=== PATIENT | male | born 1950 | race Caucasian/White ===

== ENCOUNTER 2018-03-28 22:41 | Inpatient (IN) ==
[2018-03-29] MEDS: *HR* Promethazine 25 MG/ML VIAL IVP PRN ×3 (01:05→15:08)
[2018-03-29] MEDS: *HR* FentaNYL (PF) 100 MCG/2 ML VIAL IVP PRN ×3 (01:06→07:50)
[2018-03-29] MEDS: 0.9 % Sodium Chloride 1,000 ML IVC SCH ×2 (01:06→15:27)
[2018-03-29 01:45] LABS: Basophils % 0.1 %; Hematocrit 45.2 % (37.5-50.1); Hemoglobin 14.9 g/dL (12.9-16.9); Immature Granulocytes % 0.4 % (0-4); Lymphocytes # 1.2 K/mcL (0.6-4.6); Lymphocytes % 9.1 %; Mean Corpuscular Hemoglobin 30.7 pg (28.0-33.3); Mean Platelet Volume 10.5 fL (9.4-12.4); Monocytes # 0.8 K/mcL (0.0-1.3); Monocytes % 5.6 %; Neutrophils # 11.5 K/mcL (1.6-8.9); Platelet Count 211 K/mcL (140-400); Red Blood Count 4.86 M/mcL (4.19-5.50); Red Cell Distribution Width 12.8 % (11.5-14.5); Segmented Neutrophils % 84.8 %
[2018-03-29 02:01] LABS: Prothrombin Time 10.8 Seconds (9.4-12.1)
[2018-03-29 02:03] LABS: Activated Partial Thrombo Time 25.6 Seconds (26.0-36.0); Albumin 4.2 g/dL (3.5-5.7); Albumin/Globulin Ratio 1.7 (1.1-2.2); Bilirubin,Direct 0.1 mg/dL (0.0-0.2); Bilirubin,Indirect 0.4 mg/dL (0.0-1.2); Bilirubin,Total 0.5 mg/dL (0.3-1.0); Globulin 2.5 g/dL (2.4-3.5); Total Protein 6.7 g/dL (6.4-8.9)
[2018-03-29 02:05] LABS: Amylase 156 Units/L (29-103); Lipase 529 Units/L (11-82)
[2018-03-29] MEDS: Ondansetron 4 MG/2 ML VIAL IVP PRN ×2 (02:45→11:54)
[2018-03-29] MEDS ORDERED: *HR* FentaNYL (PF) 100 MCG/2 ML VIAL IVP ONE (04:23)
[2018-03-29] MEDS ORDERED: Naloxone 0.4 MG/ML INJ IVP PRN (04:38)
[2018-03-29] MEDS: Pantoprazole 40 MG VIAL IVP SCH ×2 (04:44→17:42)
--- NOTE | 2018-03-29 06:03 | Internal Med History&Physical ---
Date of Encounter: 03/29/18 Time of Encounter: 05:00 Internal Medicine - H&P: HPI Chief complaint: abdominal pain; vomiting Admitted From: Hospital to Hospital Transfer Plans for Post Hospital Care: Home History of present illness: Mr. Nagel is a 68 year old male who presents in transfer from [facility]. He presented there with complaints of acute onset abdominal pain, protracted nausea, vomiting, and doubling over in pain. Symptoms started yesterday and they were present all day. Symptoms started shortly after breakfast and did not stop. From [facility], he was referred here for ongoing care and workup. Upon my assessment of the patient when he arrived, patient was having significant epigastric pain, protracted nausea, and some vomiting with occasional bilious emesis. He confirms above history. He denies any fevers, chills, or night sweats. He has had one episode of diarrhea. He has never had this kind of symptom before. He denies any alcohol intake. He has never had gallbladder problems. He takes no medications chronically. Past Med Surg Social Fam HX - Past Medical History Attestation: Yes The following information was validated with the patient. Source: patient, other ([facility] records) Medical history: no medical history Psychiatric history: no psych history - Past Surgical History Surgical History: herniorrhaphy, vasectomy - Social History Smoking Status: Never smoker Smokeless Tobacco Status: No Alcohol use: none Drug use: none Current living situation: Home Activity Level: Independent ambulation Recent Out of Country Travel Within the Last 8 Weeks: No - Family History Mother Living Status: Hx Family GI Disorders: No Father Living Status: Hx Family GI Disorders: No Internal Medicine - H&P: Meds 3 Allergy/AdvReac Type Severity Reaction Status Date / Time No Known Allergies Allergy Verified 03/29/18 02:43 - Constitutional Constitutional: no chills, no fever(s) - EENT Eyes: no blurry vision, no change in vision Ears: no ear pain, no tinnitus Nose, mouth and throat: no nasal congestion, no sore throat - Cardiovascular Cardiovascular ROS IM: no chest pain, no dyspnea, no dyspnea on exertion, no orthopnea - Respiratory Respiratory: no cough, no hemoptysis, no chest congestion, no excessive phlegm production - Gastrointestinal Gastrointestinal: abdominal pain, diarrhea, nausea, vomiting, no hematemesis, no hematochezia, no melena - Genitourinary Genitourinary ROS male: no dysuria, no flank pain, no hematuria - Musculoskeletal Musculoskeletal ROS IM: no arthralgias, no back pain - Integumentary Integumentary IM: no rash, no jaundice - Neurological Neurological ROS: no dizziness, no focal weakness, no frequent falls, no headache(s) - Psychiatric Psychiatric: no anxiety, no depression - Endocrine Endocrine IM: no polydipsia, no polyuria - Allergic/Immunologic Allergic/Immunologic: GI upset with certain foods - Constitutional Vitals: Temp Pulse Resp BP Pulse Ox 98.1 F 64 20 173/80 95 03/29/18 03:51 03/29/18 03:51 03/29/18 03:51 03/29/18 03:51 03/29/18 03:51 General appearance: Present: cooperative, A&O X 3, severe distress, answers questions appropriately Exam: nauseated, vomiting, moderate epigastric pain - Head Head exam: Present: atraumatic, normal inspection - Eye Eye exam: Present: EOMI, PERRL. Absent: scleral icterus Pupils: Present: normal accommodation - ENT ENT exam: Present: mucous membranes dry, normal exam, normal oropharynx - Neck Neck exam general surgery: Present: full ROM, supple. Absent: tenderness, nuchal rigidity, thyromegaly - Respiratory Respiratory exam: Present: CTAB. Absent: chest wall tenderness, rales, rhonchi , wheezes - Cardiovascular Cardiovascular exam: Present: RRR, +S1, +S2. Absent: diastolic murmur, systolic murmur - GI/Abdominal GI/Abdominal exam: Present: guarding, hypoactive bowel sounds, tenderness ( epigastric area). Absent: hepatomegaly, mass, splenomegaly - Extremities Exam Extremities exam: Present: full ROM, warm, radial pulses palpable and symmetrical. Absent: calf tenderness, joint swelling, pedal edema, tenderness - Back Exam Back exam: Absent: CVA tenderness (L), CVA tenderness (R) - Neurological Exam Neurological exam: Present: alert, CN II-XII intact, oriented X3, no focal deficits - Psychiatric Psychiatric exam: Present: normal affect, normal mood - Skin Skin exam: Present: dry, intact, warm Internal Med - H&P Results - Labs CBC & Chem 7: 03/29/18 01:12 Labs: Short CBC 08/28/18 Range/Units 01:12 WBC 13.5 H (4.3-11.1) K/mcL Hgb 14.9 (12.9-16.9) g/dL Hct 45.2 (37.5-50.1) % Plt Count 211 (140-400) K/mcL Neutrophils # 11.5 H (1.6-8.9) K/mcL Liver Function 03/29/18 Range/Units 01:12 Total Bilirubin 0.5 (0.3-1.0) mg/dL Direct Bilirubin 0.1 (0.0-0.2) mg/dL AST 17 (13-39) Units/L ALT 23 (7-52) Units/L Alkaline Phosphatase 58 (34-104) Units/L Albumin 4.2 (3.5-5.7) g/dL I reviewed labs and CT scan from [facility]. CT report reveals patient to have acute uncomplicated pancreatitis. - Assessment and plan (1) Pancreatitis, acute Current Visit: Yes Status: Acute Assessment and plan: 1. Patient in moderate to severe distress due to pain. 2. NPO. 3. IVF hydration. IV pain control with Fentanyl. IV nausea control. 4. Will add PPI. 5. Will add Flagyl and Cipro given elevated WBC. 6. Blood cultures drawn. 7. Will order RUQ U/S. Qualifiers: Pancreatitis type: idiopathic Acute pancreatitis complication: unspecified Qualified Code(s): K85.00 - Idiopathic acute pancreatitis without necrosis or infection (2) DVT prophylaxis Current Visit: Yes Status: Acute Assessment and plan: 1. Heparin SQ.
[2018-03-29] MEDS ORDERED: MetroNIDAZOLE 500 MG/100 ML 500 MG/100 ML BAG IVPB SCH (08:00)
[2018-03-29] MEDS ORDERED: *HR* Morphine 2 MG/ML SYRINGE IVP PRN (08:30)
[2018-03-29] MEDS: *HR* Heparin 5,000 UNIT/ML VIAL SQ SCH ×2 (09:32→17:41)
[2018-03-29 11:17] LABS: Ethanol < 10 mg/dL (Less than 10); Lactate Dehydrogenase 191 Units/L (140-271)
--- NOTE | 2018-03-29 11:21 | Internal Med Progress Note ---
Hospitalist Progress Note - Encounter Date of Encounter: 03/29/18 Time of Encounter: 09:30 - Subjective Interval History: still complains of epigastric pain that has mildly improved, denies vomiting He denies any fevers, chills, or night sweats. He has had one episode of diarrhea. denies CP, SOB, leg edema, dysuria. - Exam Vitals: Temp Pulse Resp BP Pulse Ox 97.8 F 69 18 173/86 96 03/29/18 10:11 03/29/18 10:11 03/29/18 10:11 03/29/18 10:11 03/29/18 10:11 Exam: General: Patient is alert, oriented, no acute distress, obese Head: atraumatic, normocephalic, Eye: normal appearance, PERRL, no scleral icterus, no conjunctival injection ENT: mucous membranes moist, normal external ear exam Neck: normal inspection, trachea midline, full ROM, no carotid bruits Chest: normal inspection, symmetric chest rise Respiratory: Good respiratory effort. Bilateral breath sounds are clear without wheezing, crackles, or rhonchi. Cardiovascular: Regular rate and rhythm. s1 and s2 No clicks, rubs, gallops, or murmors. Abdomen: Bowel sounds present normoactive x-4 quadrants. Abdomen is soft, nondistended. +ve Epigastric tenderness. No guarding or rebound. No organomegaly noted, obese musculoskeletal: Spontaneously moving all extremities. no edema, no calf tenderness Skin: warm, dry, intact. Neuro: Alert and oriented x4. Sensation light touch intact. Cranial nerves 2- 12 is intact. Not aphasic, gait is steady, rapid hand movements intact, finger- to-nose intact, Psych: Patient's affect is normal - Assessment and Plan (1) Pancreatitis, acute Current Visit: Yes Status: Acute Assessment and Plan: IV fluids Nothing by mouth Protonix Promethazine/zofran when necessary for nausea and vomiting Morphine for pain control Right upper quadrant ultrasound was ordered with follow results LDH, lactic acid, U tox, alcohol level, lipid panel, A1c (2) HTN (hypertension) Current Visit: Yes Status: Acute Assessment and Plan: will start him on amlodipine 5 mg PO daily and increase as per BP VS as per protocol hydralazine 10 mg Q6H IVP as he is NPO for now (3) DVT prophylaxis Current Visit: Yes Status: Acute Assessment and Plan: Heparin SQ. (4) Obesity (BMI 30.0-34.9) Current Visit: Yes Status: Acute Assessment and Plan: was counseled on nutrition will get nutrition consult once he is not NPO DVT Prophylaxis: heparin SC - Time Spent with Patient Total time spent is greater than 50% in coordination of care (as documented) at patient's floor/unit and/or counseling patient: Internal Medicine: Result - Labs CBC & Chem 7: 03/29/18 01:12 Labs: Short CBC 03/29/18 Range/Units 01:12 WBC 13.5 H (4.3-11.1) K/mcL Hgb 14.9 (12.9-16.9) g/dL Hct 45.2 (37.5-50.1) % Plt Count 211 (140-400) K/mcL Neutrophils # 11.5 H (1.6-8.9) K/mcL Liver Function 03/29/18 Range/Units 01:12 Total Bilirubin 0.5 (0.3-1.0) mg/dL Direct Bilirubin 0.1 (0.0-0.2) mg/dL AST 17 (13-39) Units/L ALT 23 (7-52) Units/L Alkaline Phosphatase 58 (34-104) Units/L Albumin 4.2 (3.5-5.7) g/dL - ABG Interpretation ABG results: PT/INR, D-dimer PT 10.8 Seconds (9.4-12.1) 03/29/18 01:12 - Impressions Impressions Gallbladder Ultrasound 03/29/18 08:00 IMPRESSION: Trace perihepatic and pericholecystic fluid. No evidence of cholelithiasis or acute cholecystitis. Hepatic steatosis. D/ / 03/29/2018 08:58:01 Brent Peterson MD / [email or web address] Interpreting Provider: Brent Peterson MD Consult Discharge Plan - Plan Referrals: NONE,PCP [Primary Care Provider] - Bentley Banks [Family Provider] - (1) Pancreatitis, acute Qualifiers: Pancreatitis type: idiopathic Acute pancreatitis complication: unspecified Qualified Code(s): K85.00 - Idiopathic acute pancreatitis without necrosis or infection (2) HTN (hypertension) Qualifiers: Hypertension type: essential hypertension Qualified Code(s): I10 - Essential (primary) hypertension
[2018-03-29] MEDS: amLODIPine 5 MG TABLET PO SCH (11:25)
[2018-03-29 12:24] LABS: Bilirubin,Urine Negative (Negative); Blood,Urine Negative (Negative); Clarity,Urine Cloudy (Clear); Color,Urine Yellow (Yellow); Glucose,Urine (UA) Normal (Normal); Ketones,Urine Negative (Negative); Leukocyte Esterase,Urine Negative (Negative); Nitrite,Urine Negative (Negative); PH,Urine 7.5 pH Units (5.0-8.0); Protein,Urine Trace mg/dL (Neg-Trace); Urobilinogen,Urine Normal (Normal)
[2018-03-29 12:26] LABS: Amphetamine Screen,Urine Negative ng/mL (Cutoff=1000); Barbiturate Screen,Urine Positive ng/mL (Cutoff=200); Benzodiazepines Screen,Urine Negative ng/mL (Cutoff=200); Cannabinoid Screen,Urine Negative ng/mL (Cutoff = 50); Cocaine Screen,Urine Negative ng/mL (Cutoff= 300); Opiate Screen,Urine Positive ng/mL (Cutoff=300); Phencyclidine Screen,Urine Negative ng/mL (Cutoff=25)
[2018-03-29 13:38] LABS: Chol/HDL Ratio 4.5 (0-4.9); Cholesterol 249 mg/dL (< 200); HDL Cholesterol 55 mg/dL (40-59); LDL Cholesterol,Calculated 178 mg/dL (0-99); Triglycerides 79 mg/dL (< 150)
[2018-03-29] MEDS: OXYCODONE Oral CONC 10 MG/0.5 ML ORAL.SYG SL PRN ×2 (15:08→21:40)
[2018-03-29] MEDS: Acetaminophen IV 1,000 MG/100 ML INFUS..BTL IVPB SCH ×2 (18:29→23:14)
[2018-03-29] MEDS: *HR* Morphine 2 MG/ML SYRINGE IVP PRN ×2 (20:09→22:25)
[2018-03-30] MEDS: *HR* Morphine 2 MG/ML SYRINGE IVP PRN ×2 (01:40→04:07)
[2018-03-30] MEDS: 0.9 % Sodium Chloride 1,000 ML IVC SCH ×3 (01:40→10:52)
[2018-03-30] MEDS: OXYCODONE Oral CONC 10 MG/0.5 ML ORAL.SYG SL PRN ×2 (04:07→12:07)
[2018-03-30] MEDS: Pantoprazole 40 MG VIAL IVP SCH (06:32)
[2018-03-30] MEDS: *HR* Heparin 5,000 UNIT/ML VIAL SQ SCH (06:33)
[2018-03-30] MEDS: Acetaminophen IV 1,000 MG/100 ML INFUS..BTL IVPB SCH ×2 (06:34→12:00)
[2018-03-30 08:15] LABS: INR 1.2; Prothrombin Time 13.6 Seconds (9.4-12.1)
[2018-03-30 08:16] LABS: Basophils % 0.1 %; Eosinophils # 0.1 K/mcL (0.0-0.6); Eosinophils % 0.5 %; Hematocrit 38.2 % (37.5-50.1); Immature Granulocytes % 0.7 % (0-4); Lymphocytes # 1.5 K/mcL (0.6-4.6); Lymphocytes % 10.1 %; Mean Corpuscular HGB Conc 32.5 g/dL (31.6-35.5); Mean Corpuscular Hemoglobin 30.1 pg (28.0-33.3); Mean Corpuscular Volume 92.7 fL (83.0-100.0); Mean Platelet Volume 10.5 fL (9.4-12.4); Monocytes # 0.9 K/mcL (0.0-1.3); Monocytes % 5.9 %; Neutrophils # 11.8 K/mcL (1.6-8.9); Platelet Count 170 K/mcL (140-400); Red Blood Count 4.12 M/mcL (4.19-5.50); Red Cell Distribution Width 13.2 % (11.5-14.5); Segmented Neutrophils % 82.7 %
--- NOTE | 2018-03-30 08:16 | Electrocardiograph Report ---
[address] [address] Test Date: 2018-03-29 Pat Name: Robert Nagel Department: 115 Room: 3A37 Gender: M [employer]: ALDA : 1950 Requested By: Zhen Burton Order Number: [id number] Reading MD: Unruly Babb Measurements Intervals [place] Rate: 66 P: 48 OK: 179 QRS: -1 QRSD: 107 T: 42 QT: 385 QTc: 398 Interpretive Statements SINUS RHYTHM POSSIBLE LEFT ATRIAL ENLARGEMENT Electronically Signed On 03-30-2018 8:14:56 EDT by Unruly Babb
[2018-03-30 08:18] LABS: Activated Partial Thrombo Time 27.9 Seconds (26.0-36.0)
[2018-03-30 08:29] LABS: Alanine Aminotransferase 13 Units/L (7-52); Albumin 3.4 g/dL (3.5-5.7); Albumin/Globulin Ratio 1.4 (1.1-2.2); Alkaline Phosphatase 55 Units/L (34-104); Aspartate Amino Transferase 13 Units/L (13-39); BUN/Creatinine Ratio 20 (6-26); Bilirubin,Total 0.9 mg/dL (0.3-1.0); Blood Urea Nitrogen 16 mg/dL (8-23); Calcium 8.4 mg/dL (8.6-10.3); Carbon Dioxide 25 mEq/L (23-29); Chloride 107 mEq/L (98-107); Chol/HDL Ratio 4.1 (0-4.9); Cholesterol 203 mg/dL (< 200); Globulin 2.5 g/dL (2.4-3.5); Glucose 107 mg/dL (70-105); HDL Cholesterol 49 mg/dL (40-59); LDL Cholesterol,Calculated 131 mg/dL (0-99); Magnesium 2.3 mg/dL (1.6-2.6); Osmolality,Calculated 286 (280-300); Sodium 137 mEq/L (136-145); Total Protein 5.9 g/dL (6.4-8.9); Triglycerides 113 mg/dL (< 150); eGFR For Non-African Americans > 60 (> 60)
[2018-03-30 08:46] LABS: Hemoglobin 12.4 g/dL (12.9-16.9)
[2018-03-30 09:34] LABS: Estimated Average Glucose 123 mg/dl; Hemoglobin A1C 5.9 %
[2018-03-30] MEDS: amLODIPine 5 MG TABLET PO SCH (10:40)
[2018-03-30 14:12] VITALS: BP 107/61
--- NOTE | 2018-03-30 16:15 | Discharge Summary ---
- NOTES TO OUTPATIENT PROVIDER Notes to Outpatient Provider: follow blood pressure was started on amlodipine 2.5 mg Qday BP was elevated through out hospital stay. needs to have CBC followed for reolution of leukocytosis Orders not resulted at time of discharge: Pending orders 03/29/18 01:12 Culture,Blood [BC] Stat Date of Encounter: 03/30/18 Time of Encounter: 16:11 - Discharge Diagnosis (1) Pancreatitis, acute Priority: Primary Status: Acute Qualifiers: Pancreatitis type: unspecified pancreatitis type Acute pancreatitis complication: unspecified Qualified Code(s): K85.90 - Acute pancreatitis without necrosis or infection, unspecified (2) HTN (hypertension) Priority: Secondary Status: Acute Qualifiers: Hypertension type: essential hypertension Qualified Code(s): I10 - Essential (primary) hypertension (3) DVT prophylaxis Priority: Secondary Status: Acute (4) Prediabetes Priority: Secondary Status: Acute Assessment and Plan: A1c 5.9 (5) Obesity (BMI 30.0-34.9) Priority: Secondary Status: Acute Hospital course: Mr. Nagel is a 68 year old male with no significant past medical history was transferred from [facility] with complaint of abdominal pain. basic labs showed elevated amylase and lipase and he was admitted for acute pancreatitis. he denies alochol use, lipid panel did not show hyperTG, utox showed positive for barbituates and opiates ( although it was done after he had recived narcotics for pain medications). he was treated with IVF and pain was managed with resolution of his symptoms .Abdominal US was performed - results below TTE was performed with results below he was found to be hypertensive so he was staretd on oral antihypertensives and was told to follow up with his PCP he was also found to be prediabetic and was counseled on diet and nutrition adn is to follow with PCP for further management. his tolerated his lunch without abdominal pain, nausea or vomiting and requested to be discharged at bedside and all results discussed with both patient and . he would like to be discharged as all his symptoms have resolved. abdominal US: IMPRESSION: Trace perihepatic and pericholecystic fluid. No evidence of cholelithiasis or acute cholecystitis. Hepatic steatosis. TTE: LVEF 60-65%. Normal LV chamber size and function. Mild concentric left ventricular hypertrophy. Mild left ventricular diastolic dysfunction. Normal right ventricular structure and function. Mild aortic regurgitation. Mild pulmonary hypertension. Estimated RVSP 37 mmHg. No significant valvular dysfunction. Discharge discussed with: patient, family, nurse - Time Spent with Patient Total time spent providing and/or coordinating discharge services: Less than 30 minutes - Discharge Medications Prescriptions: amLODIPine [Norvasc] 2.5 mg PO DAILY #30 tablet Blood Pressure Test Kit [Blood Pressure Kit] 1 each MC BID #1 kit Oxycodone HCl/Acetaminophen [Percocet 5-325 mg Tablet] 1 each PO Q6H PRN 2 Days #8 tablet PRN Reason: Pain Home Medications: Blood Pressure Test Kit [Blood Pressure Kit] 1 each MC BID #1 kit 03/30/18 [Rx] Oxycodone HCl/Acetaminophen [Percocet 5-325 mg Tablet] 1 each PO Q6H PRN 2 Days #8 tablet 03/30/18 [Rx] amLODIPine [Norvasc] 2.5 mg PO DAILY #30 tablet 03/30/18 [Rx] Allergies/Adverse Reactions: 3 Allergy/AdvReac Type Severity Reaction Status Date / Time No Known Allergies Allergy Verified 03/29/18 11:23 Date of admission: 03/29/18 13:17 Primary care physician: PCP NONE Consults: 03/29/18 14:45 Consult to Invasive Line Access Team [CONS] Routine Reason for Consult: poor access Line Type: EPIV - Constitutional Vitals: Temp Pulse Resp BP Pulse Ox 98.7 F 98 14 107/61 93 03/30/18 14:10 03/30/18 14:10 03/30/18 14:10 03/30/18 14:10 03/30/18 14:10 General appearance: Present: cooperative, A&O X 3, answers questions appropriately Exam: General: Patient is alert, oriented, no acute distress, obese Head: atraumatic, normocephalic, Eye: normal appearance, PERRL, no scleral icterus, no conjunctival injection ENT: mucous membranes moist, normal external ear exam Neck: normal inspection, trachea midline, full ROM, no carotid bruits Chest: normal inspection, symmetric chest rise Respiratory: Good respiratory effort. Bilateral breath sounds are clear without wheezing, crackles, or rhonchi. Cardiovascular: Regular rate and rhythm. s1 and s2 No clicks, rubs, gallops, or murmors. Abdomen: Bowel sounds present normoactive x-4 quadrants. Abdomen is soft, nondistended. no epigastric tenderness. No guarding or rebound. No organomegaly noted, obese musculoskeletal: Spontaneously moving all extremities. no edema, no calf tenderness Skin: warm, dry, intact. Neuro: Alert and oriented x4. Sensation light touch intact. Cranial nerves 2- 12 is intact. Not aphasic, gait is steady Psych: Patient's affect is normal - Patient Status Disposition: Home, Self-Care Condition: Fair Functional capacity at discharge: independent ambulation Overall status at discharge: patient is progressing back to baseline - Discharge Instructions Instructions: Pancreatitis (DC), Chronic Hypertension (DC) Follow Up With: Tyesha Badillo CNP [Partnered Physician] - 04/05/18 10:00 am (Please show up 1/2 hour early to fill out paperwork. Please bring your photo ID, insurance card and any medications you are on. If you need to cancel, please give a 24 hour notice. Thank you) - Diet and Activity Activity: increase activity as tolerated Diet: diabetic diet, low fat, low cholesterol
== END 2018-03-30 17:22 | disposition home or self-care (01) | DRG 440 ==
LOC: 3ANU → SUATTDRO 23:54
PROVIDERS: ADMIT Pediatrics; ATTEND Internal Medicine

== ENCOUNTER 2021-05-26 12:00 | Inpatient (IN) ==
[2021-05-26] MEDS ORDERED: Piperacillin/Tazobactam 3.375 GM in 0.9 % Sodium Chloride Mini Bag 100 ML IVPB ONE (12:46)
[2021-05-26 13:25] LABS: Basophils # 0.1 K/mcL (0.0-0.2); Basophils % 0.3 %; Eosinophils % 0.3 %; Hematocrit 37.4 % (37.5-50.1); Hemoglobin 11.5 g/dL (12.9-16.9); Immature Granulocytes % 2.7 % (0-4); Lymphocytes # 1.5 K/mcL (0.6-4.6); Lymphocytes % 9.6 %; Mean Corpuscular HGB Conc 30.7 g/dL (31.6-35.5); Mean Corpuscular Hemoglobin 27.9 pg (28.0-33.3); Mean Corpuscular Volume 90.8 fL (83.0-100.0); Mean Platelet Volume 10.1 fL (9.4-12.4); Monocytes # 0.8 K/mcL (0.0-1.3); Monocytes % 4.9 %; Platelet Count 298 K/mcL (140-400); Red Blood Count 4.12 M/mcL (4.19-5.50); Red Cell Distribution Width 14.7 % (11.5-14.5); Segmented Neutrophils % 82.2 %; White Blood Count 15.8 K/mcL (4.3-11.1)
[2021-05-26 13:32] LABS: Alanine Aminotransferase 48 Units/L (7-52); Albumin 3.4 g/dL (3.5-5.7); Alkaline Phosphatase 86 Units/L (34-104); Aspartate Amino Transferase 18 Units/L (13-39); BUN/Creatinine Ratio 23 (6-26); Bilirubin,Total 0.2 mg/dL (0.3-1.0); Blood Urea Nitrogen 16 mg/dL (8-23); C-Reactive Protein 37 mg/L (Less than 10); Calcium 8.8 mg/dL (8.6-10.3); Carbon Dioxide 28 mEq/L (23-29); Chloride 101 mEq/L (98-107); Globulin 3.4 g/dL (2.4-3.5); Glucose 127 mg/dL (70-105); Osmolality,Calculated 285 (280-300); Potassium 3.7 mEq/L (3.5-5.1); Sodium 136 mEq/L (136-145); Total Protein 6.8 g/dL (6.4-8.9); eGFR For African Americans > 60 (> 60); eGFR For Non-African Americans > 60 (> 60)
[2021-05-26 13:33] LABS: INR 2.5; Prothrombin Time 28.2 Seconds (9.4-12.1)
[2021-05-26 13:35] LABS: Activated Partial Thrombo Time 34.9 Seconds (26.0-36.0)
[2021-05-26] MEDS ORDERED: Ondansetron 4 MG/2 ML VIAL IVP PRN (13:42)
[2021-05-26] MEDS ORDERED: Naloxone 0.4 MG/ML INJ IVP PRN (13:42)
[2021-05-26] MEDS ORDERED: Acetaminophen 325 MG TABLET PO PRN ×2 (14:39→14:41)
[2021-05-26] MEDS ORDERED: Vancomycin 1,500 MG/265 ML IV.SOLN IVPB ONE (15:00)
[2021-05-26] MEDS ORDERED: Warfarin perPT PO PRN (18:00)
[2021-05-26] MEDS: Piperacillin/Tazobactam 3.375 GM in 0.9 % Sodium Chloride Mini Bag 100 ML IVPB SCH (20:10)
[2021-05-26] MEDS ORDERED: traZODone 50 MG TABLET PO SCH (21:00)
[2021-05-27] MEDS: Piperacillin/Tazobactam 3.375 GM in 0.9 % Sodium Chloride Mini Bag 100 ML IVPB SCH ×3 (04:34→20:51)
[2021-05-27] MEDS: Vancomycin 1,500 MG/265 ML IV.SOLN IVPB SCH ×2 (04:34→19:20)
[2021-05-27 04:46] LABS: Basophils % 0.3 %; Eosinophils # 0.1 K/mcL (0.0-0.6); Eosinophils % 0.6 %; Hematocrit 34.8 % (37.5-50.1); Hemoglobin 10.9 g/dL (12.9-16.9); Immature Granulocytes % 3.9 % (0-4); Lymphocytes # 2.6 K/mcL (0.6-4.6); Lymphocytes % 22.9 %; Mean Corpuscular HGB Conc 31.3 g/dL (31.6-35.5); Mean Corpuscular Hemoglobin 28.1 pg (28.0-33.3); Mean Corpuscular Volume 89.7 fL (83.0-100.0); Monocytes # 0.6 K/mcL (0.0-1.3); Neutrophils # 7.8 K/mcL (1.6-8.9); Platelet Count 307 K/mcL (140-400); Red Blood Count 3.88 M/mcL (4.19-5.50); Segmented Neutrophils % 67.3 %; White Blood Count 11.6 K/mcL (4.3-11.1)
[2021-05-27 04:59] LABS: INR 2.3; Prothrombin Time 25.6 Seconds (9.4-12.1)
[2021-05-27 05:04] LABS: BUN/Creatinine Ratio 20 (6-26); Blood Urea Nitrogen 13 mg/dL (8-23); Calcium 8.6 mg/dL (8.6-10.3); Carbon Dioxide 25 mEq/L (23-29); Chloride 103 mEq/L (98-107); Glucose 115 mg/dL (70-105); Osmolality,Calculated 285 (280-300); Potassium 4.1 mEq/L (3.5-5.1); Sodium 137 mEq/L (136-145); eGFR For African Americans > 60 (> 60); eGFR For Non-African Americans > 60 (> 60)
[2021-05-27] MEDS ORDERED: amLODIPine 5 MG TABLET PO SCH (09:00)
[2021-05-27] MEDS ORDERED: *HR* Warfarin 2 MG TABLET PO SCH (09:00)
[2021-05-27] MEDS ORDERED: Ringers Solution, Lactated 1,000 ML IVC SCH ×2 (15:30→17:24)
[2021-05-27] MEDS ORDERED: Bupivacaine/EPI 1:200k 0.25% 50 ML VIAL ONE (16:01)
[2021-05-27] MEDS ORDERED: Lidocaine 1% 20 ML MDV ONE (16:01)
[2021-05-27] MEDS ORDERED: *HR* Propofol 200 MG/20 ML VIAL IVP ONE (16:42)
[2021-05-27] MEDS ORDERED: Ondansetron 4 MG/2 ML VIAL ONE (16:42)
[2021-05-27] MEDS ORDERED: Lidocaine -MPF 2% 5 ML VIAL ONE (16:42)
[2021-05-27] MEDS ORDERED: *HR* FentaNYL (PF) 100 MCG/2 ML VIAL ONE ×3 (16:42→17:44)
[2021-05-27] MEDS ORDERED: EPHEDrine 50 MG/ML VIAL ONE (17:15)
[2021-05-27] MEDS ORDERED: Naloxone 0.4 MG/ML INJ IVP PRN (17:24)
[2021-05-27] MEDS ORDERED: Warfarin perPT PO PRN (17:24)
[2021-05-27] MEDS ORDERED: Ondansetron 4 MG/2 ML VIAL IVP PRN (17:24)
[2021-05-27] MEDS: traZODone 50 MG TABLET PO SCH (20:50)
[2021-05-27] MEDS: Acetaminophen 325 MG TABLET PO PRN (22:03)
[2021-05-27] MEDS ORDERED: Morphine Sulfate 2 MG/ML SYRINGE IVP ONE (22:56)
[2021-05-28] MEDS: Piperacillin/Tazobactam 3.375 GM in 0.9 % Sodium Chloride Mini Bag 100 ML IVPB SCH ×4 (04:14→22:23)
[2021-05-28 04:53] LABS: Basophils # 0.1 K/mcL (0.0-0.2); Basophils % 0.4 %; Eosinophils # 0.1 K/mcL (0.0-0.6); Hematocrit 35.9 % (37.5-50.1); Hemoglobin 10.9 g/dL (12.9-16.9); Immature Granulocytes % 2.5 % (0-4); Lymphocytes # 2.2 K/mcL (0.6-4.6); Lymphocytes % 18.3 %; Mean Corpuscular HGB Conc 30.4 g/dL (31.6-35.5); Mean Corpuscular Hemoglobin 27.6 pg (28.0-33.3); Mean Corpuscular Volume 90.9 fL (83.0-100.0); Mean Platelet Volume 9.6 fL (9.4-12.4); Monocytes # 0.6 K/mcL (0.0-1.3); Monocytes % 5.4 %; Neutrophils # 8.5 K/mcL (1.6-8.9); Platelet Count 287 K/mcL (140-400); Red Blood Count 3.95 M/mcL (4.19-5.50); Red Cell Distribution Width 15.1 % (11.5-14.5); Segmented Neutrophils % 72.4 %; White Blood Count 11.8 K/mcL (4.3-11.1)
[2021-05-28 05:03] LABS: INR 1.5; Prothrombin Time 16.3 Seconds (9.4-12.1)
[2021-05-28 05:25] LABS: BUN/Creatinine Ratio 15 (6-26); Blood Urea Nitrogen 13 mg/dL (8-23); Calcium 8.3 mg/dL (8.6-10.3); Carbon Dioxide 28 mEq/L (23-29); Chloride 102 mEq/L (98-107); Glucose 148 mg/dL (70-105); Osmolality,Calculated 287 (280-300); Potassium 4.5 mEq/L (3.5-5.1); Sodium 137 mEq/L (136-145); eGFR For African Americans > 60 (> 60); eGFR For Non-African Americans > 60 (> 60)
[2021-05-28] MEDS: Vancomycin 1,500 MG/265 ML IV.SOLN IVPB SCH ×2 (05:40→16:34)
[2021-05-28] MEDS: amLODIPine 5 MG TABLET PO SCH (07:43)
[2021-05-28] MEDS ORDERED: Sennosides 8.6 MG TABLET PO PRN (13:17)
[2021-05-28] MEDS: polyethylene glycoL 3350 17 GM POWD.PACK PO SCH (13:46)
[2021-05-28] MEDS ORDERED: *HR* Warfarin 4 MG TABLET PO ONE (18:00)
[2021-05-28] MEDS: Acetaminophen 325 MG TABLET PO PRN (19:13)
[2021-05-28] MEDS: traZODone 50 MG TABLET PO SCH (19:15)
[2021-05-29] MEDS: Acetaminophen 325 MG TABLET PO PRN ×4 (01:09→21:25)
[2021-05-29] MEDS: Vancomycin 1,500 MG/265 ML IV.SOLN IVPB SCH (04:31)
[2021-05-29] MEDS: Piperacillin/Tazobactam 3.375 GM in 0.9 % Sodium Chloride Mini Bag 100 ML IVPB SCH ×2 (04:32→11:53)
[2021-05-29 04:56] LABS: Basophils # 0.1 K/mcL (0.0-0.2); Basophils % 0.5 %; Eosinophils # 0.1 K/mcL (0.0-0.6); Eosinophils % 1.2 %; Hematocrit 30.3 % (37.5-50.1); Hemoglobin 9.6 g/dL (12.9-16.9); Immature Granulocytes % 2.2 % (0-4); Lymphocytes # 2.3 K/mcL (0.6-4.6); Lymphocytes % 23.4 %; Mean Corpuscular HGB Conc 31.7 g/dL (31.6-35.5); Mean Corpuscular Hemoglobin 28.7 pg (28.0-33.3); Mean Corpuscular Volume 90.4 fL (83.0-100.0); Mean Platelet Volume 10.5 fL (9.4-12.4); Monocytes # 0.6 K/mcL (0.0-1.3); Monocytes % 5.8 %; Neutrophils # 6.6 K/mcL (1.6-8.9); Platelet Count 227 K/mcL (140-400); Red Blood Count 3.35 M/mcL (4.19-5.50); Segmented Neutrophils % 66.9 %; White Blood Count 9.9 K/mcL (4.3-11.1)
[2021-05-29 05:02] LABS: INR 1.3
[2021-05-29 05:12] LABS: BUN/Creatinine Ratio 18 (6-26); Blood Urea Nitrogen 12 mg/dL (8-23); Calcium 8.3 mg/dL (8.6-10.3); Carbon Dioxide 27 mEq/L (23-29); Chloride 100 mEq/L (98-107); Glucose 130 mg/dL (70-105); Osmolality,Calculated 280 (280-300); Sodium 134 mEq/L (136-145); eGFR For African Americans > 60 (> 60); eGFR For Non-African Americans > 60 (> 60)
[2021-05-29] MEDS: polyethylene glycoL 3350 17 GM POWD.PACK PO SCH ×2 (08:36→21:06)
[2021-05-29] MEDS: *HR* Enoxaparin 100 MG/ML SYRINGE SQ SCH ×2 (08:36→18:04)
[2021-05-29] MEDS: amLODIPine 5 MG TABLET PO SCH (08:37)
[2021-05-29] MEDS ORDERED: Milk and Molasses Enema 200 ML RC PRN (15:43)
[2021-05-29] MEDS ORDERED: *HR* Warfarin 4 MG TABLET PO ONE (18:00)
[2021-05-29] MEDS: Sennosides 8.6 MG TABLET PO SCH ×2 (18:04→21:26)
[2021-05-29] MEDS: traZODone 50 MG TABLET PO SCH (21:25)
[2021-05-30] MEDS: Acetaminophen 325 MG TABLET PO PRN ×4 (03:29→21:52)
[2021-05-30 03:45] LABS: INR 1.4; Prothrombin Time 15.4 Seconds (9.4-12.1)
[2021-05-30] MEDS: *HR* Enoxaparin 100 MG/ML SYRINGE SQ SCH ×2 (05:09→19:16)
[2021-05-30] MEDS: Sennosides 8.6 MG TABLET PO SCH ×2 (09:38→20:52)
[2021-05-30] MEDS: amLODIPine 5 MG TABLET PO SCH (09:40)
[2021-05-30] MEDS: polyethylene glycoL 3350 17 GM POWD.PACK PO SCH ×2 (09:41→20:52)
[2021-05-30] MEDS ORDERED: *HR* Warfarin 4 MG TABLET PO ONE (18:00)
[2021-05-30] MEDS: traZODone 50 MG TABLET PO SCH (20:52)
[2021-05-31] MEDS: Acetaminophen 325 MG TABLET PO PRN ×3 (04:13→20:46)
[2021-05-31 04:34] LABS: Hematocrit 32.5 % (37.5-50.1); Hemoglobin 9.9 g/dL (12.9-16.9); Mean Corpuscular HGB Conc 30.5 g/dL (31.6-35.5); Mean Corpuscular Hemoglobin 27.6 pg (28.0-33.3); Mean Corpuscular Volume 90.5 fL (83.0-100.0); Mean Platelet Volume 9.8 fL (9.4-12.4); Platelet Count 276 K/mcL (140-400); Red Blood Count 3.59 M/mcL (4.19-5.50); Red Cell Distribution Width 14.7 % (11.5-14.5); White Blood Count 8.6 K/mcL (4.3-11.1)
[2021-05-31 04:46] LABS: INR 1.6; Prothrombin Time 17.3 Seconds (9.4-12.1)
[2021-05-31] MEDS: *HR* Enoxaparin 100 MG/ML SYRINGE SQ SCH ×2 (06:12→17:42)
[2021-05-31] MEDS: Sennosides 8.6 MG TABLET PO SCH ×2 (08:35→20:32)
[2021-05-31] MEDS: amLODIPine 5 MG TABLET PO SCH (08:36)
[2021-05-31] MEDS: polyethylene glycoL 3350 17 GM POWD.PACK PO SCH ×2 (08:37→20:32)
[2021-05-31] MEDS ORDERED: *HR* Warfarin 4 MG TABLET PO ONE (18:00)
[2021-05-31] MEDS: traZODone 50 MG TABLET PO SCH (20:46)
[2021-06-01] MEDS: Acetaminophen 325 MG TABLET PO PRN ×4 (03:03→22:01)
[2021-06-01 05:08] LABS: INR 1.8; Prothrombin Time 19.5 Seconds (9.4-12.1)
[2021-06-01] MEDS: *HR* Enoxaparin 100 MG/ML SYRINGE SQ SCH ×2 (05:30→17:45)
[2021-06-01] MEDS: amLODIPine 5 MG TABLET PO SCH (08:56)
[2021-06-01] MEDS: polyethylene glycoL 3350 17 GM POWD.PACK PO SCH ×2 (08:56→20:40)
[2021-06-01] MEDS: Sennosides 8.6 MG TABLET PO SCH ×2 (08:56→20:40)
[2021-06-01] MEDS ORDERED: *HR* Warfarin 4 MG TABLET PO ONE (18:00)
[2021-06-01] MEDS: traZODone 50 MG TABLET PO SCH (20:39)
[2021-06-02] MEDS: *HR* Enoxaparin 100 MG/ML SYRINGE SQ SCH (05:01)
[2021-06-02] MEDS: Acetaminophen 325 MG TABLET PO PRN ×2 (05:01→12:32)
[2021-06-02 05:57] LABS: Prothrombin Time 22.3 Seconds (9.4-12.1)
[2021-06-02 07:37] VITALS: BP 118/85; PULSE 80; TEMP 97.6; O2SAT 97
[2021-06-02] MEDS: amLODIPine 5 MG TABLET PO SCH (10:55)
[2021-06-02] MEDS: polyethylene glycoL 3350 17 GM POWD.PACK PO SCH (11:01)
[2021-06-02] MEDS: Sennosides 8.6 MG TABLET PO SCH (11:01)
[2021-06-02] MEDS ORDERED: *HR* Warfarin 4 MG TABLET PO ONE (18:00)
== END 2021-06-02 12:34 | disposition home health service (06) | DRG 240 ==
LOC: EMEROOARM 12:00 → SUATTDRO 18:26 → 3BNU 18:26 → 4WAOSI 05-29 15:08
PROVIDERS: ADMIT Family Medicine; ATTEND Internal Medicine